=== PATIENT | female | born 1990 | race Caucasian/White ===

== ENCOUNTER 2024-04-13 20:35 | Emergency (ER) | payer OTHER, SELFPAY ==
[2024-04-13 20:37] VITALS: BP 168/104
[2024-04-13 22:22] LABS: % Basophils 0.1 % (0-2); % Eosinophils 0.3 % (0-6); % Immature Granulocytes 0.3 % (0-0.5); % Lymphocytes 28.6 % (20.5-51.1); % Monocytes 5.6 % (1.7-9.3); % Neutrophils 65.1 % (42.2-75.2); Absolute Lymphocytes 2.1 10^3/uL (1.2-3.4); Absolute Monocytes 0.4 10^3/uL (0.1-0.6); Absolute Neutrophils 4.7 10^3/uL (1.4-6.5); Hematocrit 40.4 % (37.0-47.0); Hemoglobin 13.7 g/dL (12.0-16.0); Mean Corp Hgb Conc. 33.9 g/dL (33.0-37.0); Mean Corpuscular Hgb 28.5 pg (27.0-31.0); Nucleated Red Blood Cells % 0 %; Platelet Count 298 10^3/uL (130-400); Red Blood Cell Count 4.81 10^6/uL (4.20-5.40); White Blood Cell Count 7.3 10^3/uL (4.8-10.8)
[2024-04-13 22:24] VITALS: BP 129/84
[2024-04-13 22:28] VITALS: BMI 33.5
[2024-04-13 22:30] VITALS: BP 113/82
[2024-04-13 22:38] LABS: ALT (SGPT) 18 U/L (0-35); AST (SGOT) 25 U/L (14-36); Albumin 4.3 g/dl (3.5-5.0); Alkaline Phosphatase 71 U/L (38-126); Blood Urea Nitrogen 14 mg/dl (7-17); Calcium 9.4 mg/dl (8.4-10.2); Carbon Dioxide 28 mmol/L (22-30); Chloride 102 mmol/L (98-107); Estimated Creatinine Clearance 93 ml/min; Glucose 88 mg/dl (70-99); Potassium 4.2 mmol/L (3.5-5.1); Sodium 137 mmol/L (135-145); Total Bilirubin 0.5 mg/dl (0.2-1.3); Total Protein 7.4 g/dl (6.3-8.2); eGFR > 60.00
[2024-04-13 22:49] LABS: Troponin I < 0.012 ng/ml
--- NOTE | 2024-04-13 22:58 | ED.GENMED ---
History of Present Illness
General
Chief Complaint: Numbness
Source: patient
Exam Limitations: none
Time Seen by Provider: 04/13/24 21:10
Nursing documentation reviewed up to this point in time: agreed with
History of Present Illness
History of Present Illness:
Patient to ED with complaint of left arm numbness, heaviness. Symptoms startedon Sunday and are intermittent. She reports an episode where she felt flush and then developed generalized tingling. This resolved with rest. Left arm numbness and
tingling continues. Denes fever/chills, recent illness. No history of trauma. Denies any recent neck or back pain. Brought self to ED for eval.
Past History
Past History
ED Past Medical History: None
Review of Systems
Review of Systems
Allergies reviewed?: Yes
All Other Systems: ROS reviewed and negative except as documented in HPI and ROS
Constitutional: Reports no symptoms
EENT: Reports no symptoms
Respiratory: Reports no symptoms
Cardiac: Reports no symptoms
Musculoskeletal: Reports no symptoms
Skin: Reports no symptoms
Neurological: Reports numbness (Numbness and tingling to LUE)
Psychiatric: Reports no symptoms
Phy Exam
General Physical Exam
General Presentation: well appearing and no apparent distress
General Skin: warm and dry
General Habitus: normal
General Mental: alert
Cardiovascular Exam
Cardiovascular Exam: regular rate/rhythm and no edema
Pulmonary Exam
Pulmonary Exam: lungs clear and no respiratory distress
Neurological Exam
Neurological Exam: alert, oriented x3, no motor deficits, no sensory deficits and speech normal
Musculoskeletal Exam
Musculoskeletal Exam: full ROM, neuro vasc intact and other
Skin Exam
Skin Exam: normal color, warm/dry and no rash
Psychiatric Exam
Psychiatric Exam: normal mood/affect
Course
Orders/Labs/Results
Orders:
Orders
04/13/24 20:36
EKG [Electrocardiogram (*1)] Urgent
Reason for Study: Chest Pain
EKG- Treatment ONCE
04/13/24 22:13
Complete Blood Count/With Diff Urgent
Comprehensive Metabolic Panel Urgent
Troponin I Urgent
04/13/24 22:56
Prednisone [Deltasone] 40 mg PO NOW STA
04/13/24 22:13
04/13/24 22:13
Vital Signs
Initial and Last Documented VS:
Initial Vital Signs
Temp Pulse Resp BP Pulse Ox
99.6 F 96 20 168/104 96
04/13/24 20:37 04/13/24 20:37 04/13/24 20:37 04/13/24 20:37 04/13/24 20:37
Last Documented Vital Signs
Temp Pulse Resp BP Pulse Ox
99.6 F 73 20 129/84 98
04/13/24 20:37 04/13/24 22:24 04/13/24 22:24 04/13/24 22:24 04/13/24 22:28
*Critical Care Note
Total Time (30-74mins, 75-104mins- exclusive of procedures): Not Applicable
Update Note
Update Note:
Patient to ED with Intermittent numbness and tingling to LUE. No aggravating or alleviating factors. Labs reviewed. No concerning findings. LUE is neurovascularly intact. FUll ROM. No swelling, wounds, bruising. Has had back issues in the
past, has had steroid injections to low back in the past. Will try course of prednisone. SHe is dischrged home and will follow up with PCP
ED Attending Note
-
Portions of this chart may have been created with voice recognition software.� Occasional wrong word or��sound alike� substitutions may have occurred due to the inherent limitations of voice recognition software.
Discharge Plan
Departure
Patient Disposition: Home (Routine Discharge)
Date of Disposition: 04/13/24
Time of Disposition: 22:56
Patient with high blood pressure during this ER visit?: No
Condition: Good
Covid-19: Not Applicable
Discharge Problem:
Cervical radiculopathy
Instructions: Peripheral neuropathy
Prescriptions:
New
prednisone 10 mg Tablet
See Rx Instructions .ROUTE .COMPLEX Qty: 30 0RF
Rx Instructions:
Take By Mouth:
40 mg daily x3 days, 30 mg daily x3 days,
20 mg daily x3 days, 10 mg daily x3 days.
Referrals:
UNKNOWN - PT DOES,NOT KNOW [Family Provider] -
Activity Restrictions/Additional Instructions:
Follow up with your family doctor.
Interventions
Interventions:
*Risk Screen - Suicide Last Done: 04/13/24 20:37
*General Assessment Last Done: 04/13/24 22:28
*Neglect/Abuse Screening Last Done: 04/13/24 20:37
ED- Fall Risk Assessment Last Done: 04/13/24 22:28
*ED COVID-19 Vaccine History Last Done: 04/13/24 22:33
ED- Neurological Assessment Last Done: 04/13/24 22:28
Discharge Date and Time
Print Language: UPPER SORBIAN
[2024-04-13 23:00] VITALS: BP 110/76
[2024-04-13 23:30] VITALS: BP 102/76
[2024-04-14] VITALS: BP 101/74
[2024-04-14] MEDS: DELTASONE 40 MG PO (00:05)
== END 2024-04-14 00:25 | disposition home or self-care (01) ==
LOC: EMR 20:35
PROVIDERS: Nurse Practitioner; EMERGENCY PHYSICIAN Student in an Organized Health Care Education/Training Program
DX: M54.12 Radiculopathy, cervical region (principal); R07.89 Other chest pain
CPT/HCPCS: 99283; 80053; 84484; 85025; 93005